=== PATIENT | male | born 2000 | race Two or more races ===

== ENCOUNTER 2022-12-07 17:13 | Emergency (ER) | payer OTHER, SELFPAY ==
[2022-12-07 17:18] VITALS: BP 139/83; PULSE 99; RESP 16; TEMP 36.4; O2SAT 98
[2022-12-07 17:39] LABS: Basophils Absolute Auto 0.02 K/uL (0.00-0.30); Basophils Percent Auto 0.2 % (0.0-3.0); Hematocrit 45.5 % (37.0-53.0); Hemoglobin* 15.7 gm/dL (13.5-17.5); Immature Granulocytes Abs Auto 0.09 K/uL (0.00-0.30); Immature Granulocytes Pct Auto 0.9 %; Lymphocytes Percent Auto 10.6 % (20-44); Mean Corpuscular HGB Conc 35 gm/dL (32-36); Mean Corpuscular Hemoglobin 29 pg (26-34); Mean Corpuscular Volume 84 fL (80-100); Monocytes Percent Auto 1.7 % (0.0-11.0); Neutrophils Percent Auto 85.6 % (42.0-72.0); Platelet Count* 158 K/uL (140-440); RDW Coefficient of Variation % 12.6 % (11.5-15.5); Red Blood Count 5.39 m/uL (4.30-5.90); White Blood Count* 9.69 K/uL (4.50-11.00)
[2022-12-07 17:40] LABS: Slide Review Reflex No
[2022-12-07] MEDS: 0.9 % SODIUM CHLORIDE 1000 ml 1,000 ML IV (17:40)
[2022-12-07] MEDS: ONDANSETRON 2 MG/ML inj 4 MG IVP (17:42)
[2022-12-07] MEDS: KETOROLAC 30 MG/ML inj IVP (17:44)
[2022-12-07 17:52] LABS: Albumin* 4.6 g/dL (3.3-5.0)
[2022-12-07 17:53] LABS: Chloride* 103 mmol/L (96-114); Potassium* 3.6 mmol/L (3.6-5.1); Sodium* 138 mmol/L (135-149)
[2022-12-07 17:55] LABS: Aspartate Amino Transferase* 33 U/L (12-35); Bilirubin Direct* 0.3 mg/dL (0.0-0.5); Bilirubin Total* 0.8 mg/dL (0.1-1.5); Blood Urea Nitrogen* 10 mg/dL (5-24); Carbon Dioxide* 24 mmol/L (20-32); Creatinine* 0.7 mg/dL (0.5-1.5); Estimated Glomerular Filt Rate 132 ml/min
[2022-12-07 17:56] LABS: Alanine Aminotransferase* 32 U/L (4-50); Alkaline Phosphatase* 106 U/L (40-150); Glucose* 118 mg/dL (60-115); Lipase* 53 U/L (23-300)
[2022-12-07 18:06] VITALS: BP 126/76; PULSE 92; O2SAT 99
--- NOTE | 2022-12-07 18:45 | ED.GENADULT ---
HPI - General Adult General Chief complaint: Abdominal Pain Stated complaint: abdominal pain, vomiting Time Seen by Provider: 12/07/22 17:15 History of Present Illness HPI narrative: This 22-year-old male comes in with nausea, vomiting, and abdominal pain that began today. He has not had any diarrhea and does not report any fevers. He states that the pain is diffuse in his abdomen and is rather constant. Related Data Home Medications Medication Instructions Recorded Confirmed No Known Home Medications 12/07/22 12/07/22 Allergies Allergy/AdvReac Type Severity Reaction Status Date / Time No Known Drug Allergies Allergy Verified 12/07/22 17:18 Review of Systems Status of ROS: Reports: 10 or more systems reviewed and unremarkable except as noted in History and below Narrative: Constitutional: No fevers, no weight gain or loss. Eyes: No discharge. No vision changes. HENT: No congestion, no sore throat, no ear pain. Cardiovascular: No chest pain, no palpitations. Respiratory: No shortness of breath, no wheezes, no cough. Gastrointestinal: Nausea, vomiting, and abdominal discomfort. No diarrhea. Genitourinary: No dysuria, no hematuria. Musculoskeletal: Normal range of motion. Skin: No rashes, no pruritis. Neurological: No dizziness, weakness, sensory change, speech change. Endo/Heme/Allergies: No bruising or bleeding. No polydipsia. Pysch: no suicidality, no anxiety, no insomnia. All other systems reviewed and are negative. [facility] Social History Smoking Status: Never smoker How often do you have a drink containing alcohol: 4 or more times a week How many standard drinks containing alcohol do you have on a typical day: 3 or 4 How often do you have six or more drinks on one occasion: Never AUDIT-C Alcohol total score: 5 Non-prescribed substance use: crack/cocaine Exam Narrative: Exam Narrative: Constitutional: Well-developed, well-nourished, no acute distress. HEENT: Normocephalic, atraumatic. Neck: Normal range of motion. Nontender. Supple. Heart: Regular. No murmurs. Normal rate. Intact distal pulses. Lungs: Clear to auscultation. No chest discomfort. No wheezes, rhonchi, or rales. Abdomen: Normal bowel sounds. Mild tenderness. No rebound tenderness. Genitalia: Deferred. Back: No midline tenderness. Normal range of motion. Extremities: Normal range of motion. No injury. Skin: Intact. No rash. Warm. No erythema or pallor. Neurologic: No altered sensation. No weakness. Alert and oriented. Psychiatric: No suicidality. No anxiety or depression. No insomnia. Nursing notes and vitals signs are reviewed. Const: Vital Signs, click to edit/add: Vital Signs - 24 hr 12/07/22 17:18 12/07/22 18:06 Temperature 97.5 F L Pulse Rate [Pulse Oximeter] 99 92 Respiratory Rate 16 Blood Pressure [[facility] Upper Arm] 139/83 126/76 Pulse Oximetry 98 99 Oxygen Delivery Me thod Room Air Room Air Course Vital Signs Vital signs: Initial Vital Signs Temperature 97.5 F L 12/07/22 17:18 Temperature Source Temporal Artery Scan 12/07/22 17:18 Pulse Rate 99 12/07/22 17:18 Respiratory Rate 16 12/07/22 17:18 Blood Pressure 139/83 12/07/22 17:18 Blood Pressure Mean 101 12/07/22 17:18 Blood Pressure Position Sitting 12/07/22 17:18 Pulse Oximetry 98 12/07/22 17:18 Oxygen Delivery Method Room Air 12/07/22 17:18 Vital Signs Temperature 97.5 F L 12/07/22 17:18 Pulse Rate 99 12/07/22 17:18 Respiratory Rate 16 12/07/22 17:18 Blood Pressure 139/83 12/07/22 17:18 Pulse Oximetry 98 12/07/22 17:18 Oxygen Delivery Method Room Air 12/07/22 17:18 Temperature 97.5 F L 12/07/22 17:18 Pulse Rate 92 12/07/22 18:06 Respiratory Rate 16 12/07/22 17:18 Blood Pressure 126/76 12/07/22 18:06 Pulse Oximetry 99 12/07/22 18:06 Oxygen Delivery Method Room Air 12/07/22 18:06 Medical Decision Making MDM Narrative Medical decision making narrative: This patient comes in above-stated symptoms. An IV was established where he received a L of normal saline, Toradol 30 mg, and Zofran 4 mg. This brought great relief to his symptoms. Lab results returned with reassuring findings. Most likely this is a viral gastroenteritis. At the time of discharge the patient appears safe for outpatient management. The treatment plan is reviewed along with written and verbal return precautions. Reasons to return and the importance of close followup were also reviewed. He received prescription for Zofran. Lab Data Labs: Lab Results 12/07/22 Range/Units 17:30 WBC 9.69 (4.50-11.00) K/uL RBC 5.39 (4.30-5.90) m/uL Hgb 15.7 (13.5-17.5) gm/dL Hct 45.5 (37.0-53.0) % MCV 84 (80-100) fL MCH 29 (26-34) pg MCHC 35 (32-36) gm/dL RDW Coeff of Garcia 12.6 (11.5-15.5) % Plt Count 158 (140-440) K/uL Neut % (Auto) 85.6 H (42.0-72.0) % Lymph % (Auto) 10.6 L (20-44) % [place] % (Auto) 1.7 (0.0-11.0) % Eos % (Auto) 1.0 (0.0-7.0) % Baso % (Auto) 0.2 (0.0-3.0) % Neut # (Auto) 8.30 H (1.7-7.0) K/uL Lymph # (Auto) 1.00 (0.90-2.90) K/uL [place] # (Auto) 0.20 (0.00-0.90) K/UL Eos # (Auto) 0.10 (0.00-0.50) K/uL Baso # (Auto) 0.02 (0.00-0.30) K/uL Sodium 138 (135-149) mmol/L Potassium 3.6 (3.6-5.1) mmol/L Chloride 103 (96-114) mmol/L Carbon Dioxide 24 (20-32) mmol/L BUN 10 (5-24) mg/dL Creatinine 0.7 (0.5-1.5) mg/dL Estimated GFR 132 ml/min Glucose 118 H (60-115) mg/dL Calcium 9.0 (8.4-10.6) mg/dL Total Bilirubin 0.8 (0.1-1.5) mg/dL Direct Bilirubin 0.3 (0.0-0.5) mg/dL AST 33 (12-35) U/L ALT 32 (4-50) U/L Alkaline Phosphatase 106 (40-150) U/L Total Protein 8.0 (6.0-8.3) g/dL Albumin 4.6 (3.3-5.0) g/dL Lipase 53 (23-300) U/L Discharge Plan Discharge Clinical Impression: Gastroenteritis Patient Disposition: Home, Self-Care Condition: Improved Additional Instructions: Take medication as needed and directed. Follow up with MD or return if worsening. Prescriptions: No Action No Known Home Medications Follow Up/Referrals: Provider,Not a Local [Primary Care Provider] - Stand Alone Forms: [employer] Info Instructions
== END 2022-12-07 19:07 | disposition home or self-care (01) ==
PROVIDERS: Emergency Provider Emergency Medicine Emergency Medical Services
DX: K52.9 Noninfective gastroenteritis and colitis, unspecified (principal)
CPT/HCPCS: 36415; 80048; 80076; 83690; 85025; 99283; 99284; J1885; J2405; J7030

== ENCOUNTER 2022-12-08 07:30 | Day surgery (SDC) | payer OTHER, SELFPAY ==
[2022-12-08] VITALS (28 sets, daily range): BP systolic 108–133; BP diastolic 67–84; PULSE 64–657; RESP 16–18; TEMP 36–37.4; O2SAT 92–98; BMI 26.2
--- NOTE | 2022-12-08 07:44 | CRLHL7_ITS ---
For Patients: As a result of the Century Cures Act, medical imaging exams and procedure reports are released immediately into your electronic medical record. You may view this report before your referring provider. If you have questions, please contact your health care provider. INDICATION: RLQ PAIN TECHNIQUE: CT abdomen and pelvis with ISOVUE 370 82CC IV contrast. COMPARISON: None. FINDINGS: The liver is normal in size, shape and attenuation. Gallbladder and biliary tree are normal. The spleen, adrenal glands and pancreas are within normal limits. The kidneys are unremarkable. No hydronephrosis. Decompressed bladder. Dilated fluid-filled appendix with wall thickening and inflammation. Findings compatible with acute appendicitis. Tiny foci of air near the appendix tip on series 2, image 122 which appears to be extraluminal concerning for localized/contained perforation. No evidence of fluid collection. Mildly prominent right lower quadrant lymph nodes which are likely reactive. Mildly dilated fluid-filled loops of small bowel in the right lower quadrant which are likely reactive. No evidence of bowel obstruction. No significant free fluid. Pelvic organs are unremarkable. The lower chest is unremarkable. IMPRESSION: Findings compatible with acute appendicitis. Tiny foci of air near the appendix tip which appears to be extraluminal concerning for localized/contained appendix perforation. No evidence of fluid collection to suggest abscess. Please note that all CT scans at this facility use dose modulation, iterative reconstruction, and/or weight-based dosing when appropriate to reduce radiation dose to as low as reasonably achievable. Dictated by Karl Coyle MD @ 12/08/2022 9:07:25 AM (Electronically Signed)
--- NOTE | 2022-12-08 07:45 | ED_ITS ---
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 Was thought to have gastroenteritis given some Zofran with good relief and sent home. He continues to have vomiting and today increasing right lower quadrant pain. No pain in his testicle area no trauma no injury. No marked fevers or chills, he walks in slightly flexed position by report and he also had significant tenderness when he hit bumps in the car on the way here in his right lower quadrant. Pain does not really radiate stays localized right lower quadrant. He has not eaten since yesterday. No recent illness, no cough colds no chronic health problems, no home medications. Related Data Previous Rx's Medication Instructions Recorded hydrocodone 5 mg-acetaminophen 325 1 tab PO Q6H PRN pain #20 tabs 12/08/22 mg tablet polyethylene glycol 3350 17 gram 17 g PO DAILY #10 ea 12/08/22 oral powder packet (Miralax) Allergies Allergy/AdvReac Type Severity Reaction Status Date / Time No Known Drug Allergies Allergy Verified 12/07/22 17:18 Review of Systems Status of ROS: Reports: 6 or more systems reviewed and unremarkable except as noted in History and below PFSH PFSH Social History Smoking Status: Never smoker How often do you have a drink containing alcohol: 4 or more times a week How many standard drinks containing alcohol do you have on a typical day: 3 or 4 How often do you have six or more drinks on one occasion: Never AUDIT-C Alcohol total score: 5 Non-prescribed substance use: crack/cocaine Exam Narrative: Exam Narrative: Objective: Patient's vital signs unremarkable and slightly elevated temperature In general he is in mild distress and discomfort he is alert orient x3 HEENT is unremarkable no facial asymmetry no scleral icterus neck is supple chest is clear heart rhythm regular heart murmur Abdomen benign except for his right lower quadrant he has got marked guarding and rebound no palpable mass negative CVA tenderness extremities are no edema neurologic nonfocal Periphery skin warm and dry Const: Vital Signs, click to edit/add: Vital Signs - 24 hr 12/08/22 07:35 12/08/22 08:44 12/08/22 08:45 Temperature 99.4 F Pulse Rate 95 94 Pulse Rate [Right Pulse Oximeter] 107 H Respiratory Rate 18 Blood Pressure 118/69 Blood Pressure [Ri ght Arm] Blood Pressure [Ri ght Upper Arm] 112/73 Pulse Oximetry 98 97 97 Oxygen Delivery Me thod Room Air 12/08/22 08:46 12/08/22 09:00 12/08/22 09:01 Temperature Pulse Rate 92 96 98 Pulse Rate [Right Pulse Oximeter] Respiratory Rate Blood Pressure 123/78 Blood Pressure [Ri ght Arm] Blood Pressure [Ri ght Upper Arm] Pulse Oximetry 97 98 98 Oxygen Delivery Me thod 12/08/22 09:30 12/08/22 09:31 12/08/22 10:00 Temperature Pulse Rate 92 94 81 Pulse Rate [Right Pulse Oximeter] Respiratory Rate Blood Pressure 133/76 Blood Pressure [Ri ght Arm] Blood Pressure [Ri ght Upper Arm] Pulse Oximetry 97 97 97 Oxygen Delivery Me thod 12/08/22 10:01 12/08/22 10:30 12/08/22 10:31 Temperature Pulse Rate 92 81 85 Pulse Rate [Right Pulse Oximeter] Respiratory Rate Blood Pressure 116/78 112/72 Blood Pressure [Ri ght Arm] Blood Pressure [Ri ght Upper Arm] Pulse Oximetry 97 96 97 Oxygen Delivery Me thod 12/08/22 12:10 12/08/22 12:15 12/08/22 12:20 Temperature 97.9 F Pulse Rate 89 98 92 Pulse Rate [Right Pulse Oximeter] Respiratory Rate 18 18 18 Blood Pressure 118/84 111/75 111/69 Blood Pressure [Ri ght Arm] Blood Pressure [Ri ght Upper Arm] Pulse Oximetry 94 92 92 Oxygen Delivery Me thod Room Air Room Air Room Air 12/08/22 12:25 12/08/22 12:30 12/08/22 12:50 Temperature 98.5 F 98.4 F Pulse Rate 79 78 75 Pulse Rate [Right Pulse Oximeter] Respiratory Rate 16 16 16 Blood Pressure 113/73 116/74 Blood Pressure [Ri ght Arm] 113/72 Blood Pressure [Ri ght Upper Arm] Pulse Oximetry 96 98 Oxygen Delivery Me thod Room Air Room Air Room Air 12/08/22 13:00 12/08/22 13:15 12/08/22 13:30 Temperature 97.4 F L 97.5 F L Pulse Rate Pulse Rate [Right Pulse Oximeter] 85 65 68 Respiratory Rate 16 16 16 Blood Pressure Blood Pressure [Ri ght Arm] 113/76 110/71 115/82 Blood Pressure [Ri ght Upper Arm] Pulse Oximetry 98 96 96 Oxygen Delivery Me thod Room Air Room Air Room Air 12/08/22 13:45 12/08/22 14:00 12/08/22 14:30 Temperature 97 F L 97.1 F L Pulse Rate Pulse Rate [Right Pulse Oximeter] 65 657 H 70 Respiratory Rate 16 16 16 Blood Pressure Blood Pressure [Ri ght Arm] 108/76 120/75 121/79 Blood Pressure [Ri ght Upper Arm] Pulse Oximetry 97 96 97 Oxygen Delivery Me thod Room Air Room Air Room Air 12/08/22 15:00 12/08/22 15:54 12/08/22 16:00 Temperature 96.8 F L 96.8 F L 97 F L Pulse Rate 75 Pulse Rate [Right Pulse Oximeter] 65 64 Respiratory Rate 16 16 18 Blood Pressure 116/74 Blood Pressure [Ri ght Arm] 110/67 110/68 Blood Pressure [Ri ght Upper Arm] Pulse Oximetry 97 97 Oxygen Delivery Me thod Room Air Room Air 12/08/22 17:00 Temperature 97 F L Pulse Rate Pulse Rate [Right Pulse Oximeter] 64 Respiratory Rate 16 Blood Pressure Blood Pressure [Ri ght Arm] 112/69 Blood Pressure [Ri ght Upper Arm] Pulse Oximetry 97 Oxygen Delivery Me thod Room Air Course Vital Signs Vital signs: Initial Vital Signs Temperature 99.4 F 12/08/22 07:35 Temperature Source Temporal Artery Scan 12/08/22 07:35 Pulse Rate 107 H 12/08/22 07:35 Respiratory Rate 18 12/08/22 07:35 Blood Pressure 112/73 12/08/22 07:35 Blood Pressure Mean 86 12/08/22 07:35 Blood Pressure Position Sitting 12/08/22 07:35 Pulse Oximetry 98 12/08/22 07:35 Oxygen Delivery Method Room Air 12/08/22 07:35 Vital Signs Temperature 99.4 F 12/08/22 07:35 Pulse Rate 107 H 12/08/22 07:35 Respiratory Rate 18 12/08/22 07:35 Blood Pressure 112/73 12/08/22 07:35 Pulse Oximetry 98 12/08/22 07:35 Oxygen Delivery Method Room Air 12/08/22 07:35 Temperature 97 F L 12/08/22 17:00 Pulse Rate 64 12/08/22 17:00 Respiratory Rate 16 12/08/22 17:00 Blood Pressure 112/69 12/08/22 17:00 Pulse Oximetry 97 12/08/22 17:00 Oxygen Delivery Method Room Air 12/08/22 17:00 Medical Decision Making MDM Narrative Medical decision making narrative: 22-year-old male with right lower quadrant pain for 24 hour plus duration, with peritonitis, symptoms consistent with appendicitis. Patient will get a CT scan with IV contrast, IV fluid, laboratory studies. Surgical consult is needed, IV pain medication and IV fluid. Antiemetic. NPO. Addendum: Patient has CT confirmation of acute appendicitis. Dr. Church contacted and will call the OR crew for disposition. Lab Data Labs: Lab Results 12/08/22 Range/Units 07:50 WBC 14.06 H (4.50-11.00) K/uL RBC 5.22 (4.30-5.90) m/uL Hgb 15.3 (13.5-17.5) gm/dL Hct 44.5 (37.0-53.0) % MCV 85 (80-100) fL MCH 29 (26-34) pg MCHC 34 (32-36) gm/dL RDW Coeff of Garcia 13.0 (11.5-15.5) % Plt Count 130 L (140-440) K/uL Neut % (Auto) 94.0 H (42.0-72.0) % Lymph % (Auto) 2.6 L (20-44) % [place] % (Auto) 2.8 (0.0-11.0) % Eos % (Auto) 0.0 (0.0-7.0) % Baso % (Auto) 0.2 (0.0-3.0) % Neut # (Auto) 13.20 H (1.7-7.0) K/uL Lymph # (Auto) 0.40 L (0.90-2.90) K/uL [place] # (Auto) 0.40 (0.00-0.90) K/UL Eos # (Auto) 0.00 (0.00-0.50) K/uL Baso # (Auto) 0.00 (0.00-0.30) K/uL Sodium 136 (135-149) mmol/L Potassium 3.8 (3.6-5.1) mmol/L Chloride 102 (96-114) mmol/L Carbon Dioxide 25 (20-32) mmol/L BUN 12 (5-24) mg/dL Creatinine 0.9 (0.5-1.5) mg/dL Estimated Creat Clear 118.33 Estimated GFR 122 ml/min Glucose 139 H (60-115) mg/dL Calcium 8.5 (8.4-10.6) mg/dL Total Bilirubin 1.9 H (0.1-1.5) mg/dL Direct Bilirubin 0.8 H (0.0-0.5) mg/dL AST 67 H (12-35) U/L ALT 46 (4-50) U/L Alkaline Phosphatase 82 (40-150) U/L C-Reactive Protein 8.7 H (0.5-1.0) mg/dL Total Protein 7.7 (6.0-8.3) g/dL Albumin 4.3 (3.3-5.0) g/dL Amylase 56 (18-89) U/L Discharge Plan Discharge Clinical Impression: Abdominal pain, acute, right lower quadrant, Acute appendicitis Patient Disposition: Admitted As Inpatient Activity Level: No strenuous activity Activity Detail: No strenuous activity or lifting more than 15-20 lbs for 4-6 weeks. Discharge Diet: Regular
[2022-12-08 07:59] LABS: Basophils Percent Auto 0.2 % (0.0-3.0); Hematocrit 44.5 % (37.0-53.0); Hemoglobin* 15.3 gm/dL (13.5-17.5); Immature Granulocytes Pct Auto 0.4 %; Lymphocytes Percent Auto 2.6 % (20-44); Mean Corpuscular HGB Conc 34 gm/dL (32-36); Mean Corpuscular Hemoglobin 29 pg (26-34); Mean Corpuscular Volume 85 fL (80-100); Monocytes Percent Auto 2.8 % (0.0-11.0); Platelet Count* 130 K/uL (140-440); Red Blood Count 5.22 m/uL (4.30-5.90); White Blood Count* 14.06 K/uL (4.50-11.00)
[2022-12-08 08:08] LABS: Slide Review Reflex No
[2022-12-08 08:12] LABS: Albumin* 4.3 g/dL (3.3-5.0); Chloride* 102 mmol/L (96-114)
[2022-12-08 08:13] LABS: Potassium* 3.8 mmol/L (3.6-5.1); Sodium* 136 mmol/L (135-149)
[2022-12-08 08:15] LABS: Amylase* 56 U/L (18-89); Creatinine* 0.9 mg/dL (0.5-1.5); Est. Creatinine Clearance* 118.33; Estimated Glomerular Filt Rate 122 ml/min
[2022-12-08 08:16] LABS: Alanine Aminotransferase* 46 U/L (4-50); Alkaline Phosphatase* 82 U/L (40-150); Aspartate Amino Transferase* 67 U/L (12-35); Bilirubin Direct* 0.8 mg/dL (0.0-0.5); Bilirubin Total* 1.9 mg/dL (0.1-1.5); Blood Urea Nitrogen* 12 mg/dL (5-24); Calcium* 8.5 mg/dL (8.4-10.6); Carbon Dioxide* 25 mmol/L (20-32); Glucose* 139 mg/dL (60-115); Total Protein* 7.7 g/dL (6.0-8.3)
[2022-12-08 08:19] LABS: C Reactive Protein* 8.7 mg/dL (0.5-1.0)
[2022-12-08] MEDS: 0.9 % SODIUM CHLORIDE 500 ML 500 ML IV (08:21)
[2022-12-08] MEDS: ONDANSETRON 2 MG/ML inj 4 MG IVP (08:21)
[2022-12-08] MEDS: HYDROmorphone 0.5 mg/0.5 ml inj IVP (08:21)
--- NOTE | 2022-12-08 10:15 | ED.NURSE ---
no change in condition. waiting for surgery
--- NOTE | 2022-12-08 10:33 | ED.NURSE ---
antibiotics held per surgery request. per [facility], they will address antibiotics in the OR
[2022-12-08] MEDS: LACTATED RINGERS 1000 ML 1,000 ML 100 ML IV (11:17)
[2022-12-08] MEDS: PIPERACILLIN/TAZOBACTAM 3.375 GM INJ IVPB (11:20)
--- NOTE | 2022-12-08 11:21 | P.GSHP_ITS ---
History of Present Illness History of Present Illness Date Seen: 12/08/22 Chief complaint: Right Side Abdominal Pain Narrative: Sergio Heredia is a 22 year old male presented to emergency room with right lower quadrant abdominal pain. Patient was initially seen yesterday with right lower quadrant abdominal pain. After pain medication and anti nausea medication, his pain improved and he was discharged home. His pain then returned and patient presented to the emergency room. Patient denies any nausea or vomiting. He did not have any similar episodes in the past. Upon his workup in the emergency room he was found to have an elevated WBC of 14. An abdominal CT was obtained that showed a dilated appendix with periappendiceal inflammation. There was a tiny air bubble near the appendix indicating possible perforation. There was no evidence of periappendiceal abscess. In addition, patient was found to have elevated liver function tests with total bilirubin of 1.9 and direct bilirubin of 0.8. Patient denies drinking alcohol yesterday. Review of Systems Narrative: General: no fevers HENT: no problems swallowing CV: no shortness of breath Resp: no cough GI: See above Skin: no new rashes Musculoskeletal: no back pain Neuro: no muscle weakness PFSH PFS Social History Smoking Status: Never smoker How often do you have a drink containing alcohol: 4 or more times a week How many standard drinks containing alcohol do you have on a typical day: 3 or 4 How often do you have six or more drinks on one occasion: Never AUDIT-C Alcohol total score: 5 Non-prescribed substance use: crack/cocaine Meds Home Medications and Allergies Home Medications Medication Instructions Recorded Confirmed Type No Known Home Medications 12/07/22 12/07/22 History Allergies Allergy/AdvReac Type Severity Reaction Status Date / Time No Known Drug Allergies Allergy Verified 12/07/22 17:18 Exam Narrative: Exam Narrative: General appearance: Alert, cooperative, and in no distress Pulmonary: Chest symmetric, lungs clear bilaterally Cardiovascular Heart: Regular rate and rhythm, S1, S2, no murmurs/rubs/gallops Gastrointestinal Abdominal: soft, not distended, tender to palpation in the right lower quadrant. Skin: Normal skin color, texture, and turgor. No rashes or lesions. Psychiatric: Alert, cooperative, normal affect. Const: Vital Signs, click to edit/add: Vital Signs - 24 hr 12/08/22 07:35 12/08/22 08:44 12/08/22 08:45 Temperature 99.4 F Pulse Rate 95 94 Pulse Rate [Right Pulse Oximeter] 107 H Respiratory Rate 18 Blood Pressure 118/69 Blood Pressure [Ri ght Upper Arm] 112/73 Pulse Oximetry 98 97 97 Oxygen Delivery Me thod Room Air 12/08/22 08:46 12/08/22 09:00 12/08/22 09:01 Temperature Pulse Rate 92 96 98 Pulse Rate [Right Pulse Oximeter] Respiratory Rate Blood Pressure 123/78 Blood Pressure [Ri ght Upper Arm] Pulse Oximetry 97 98 98 Oxygen Delivery Me thod 12/08/22 09:30 12/08/22 09:31 12/08/22 10:00 Temperature Pulse Rate 92 94 81 Pulse Rate [Right Pulse Oximeter] Respiratory Rate Blood Pressure 133/76 Blood Pressure [Ri ght Upper Arm] Pulse Oximetry 97 97 97 Oxygen Delivery Me thod 12/08/22 10:01 12/08/22 10:30 12/08/22 10:31 Temperature Pulse Rate 92 81 85 Pulse Rate [Right Pulse Oximeter] Respiratory Rate Blood Pressure 116/78 112/72 Blood Pressure [Ri ght Upper Arm] Pulse Oximetry 97 96 97 Oxygen Delivery Me thod Assessment and Plan Assessment and plan (1) Acute appendicitis: Status: Acute Plan 22-year-old male presents with acute appendicitis. I discussed with the patient through bilingual interpreter his laboratory and imaging findings. Patient does have evidence of acute appendicitis with possible perforation that is contained. I recommended to proceed with laparoscopic appendectomy. The procedure was discussed in detail. The risks associated procedure including infection, bleeding, injury to intra-abdominal organs, and intra-abdominal abscess were all discussed with the patient, and he agreed to proceed. I also discussed that patient had elevated liver function tests. The etiology of this is unclear. This could be stress related. I think at this time we will repeat his liver function tests postoperatively to see if they are improving. All questions were answered.
[2022-12-08] MEDS: BUPIVACAINE 0.25% 30 ML INJECTION (11:45)
--- NOTE | 2022-12-08 12:10 | PM.GSPRC ---
Operative Note Date of procedure: 12/08/22 Pre-op diagnosis: 1. Acute appendicitis. Post-op diagnosis: Same Type of Procedure: 1. Laparoscopic appendectomy. Indications: 22-year-old male was seen in the emergency room with right lower quadrant abdominal pain that started yesterday. Patient was initially seen in the emergency room yesterday and was thought to have gastroenteritis. Patient was discharged home but continued to have symptoms and re-presented to the emergency room today. Upon his workup he was found to have an elevated WBC of 14. An abdominal CT was obtained that showed a dilated wall enhancing appendix with periappendiceal inflammation. On clinical exam patient had tenderness to palpation in the right lower quadrant but no where else. Given patient's clinical history and his physical exam, acute appendicitis was suspected, and laparoscopic appendectomy was recommended. The procedure was discussed in detail. The risks associated procedure including infection, bleeding, and injury to intra-abdominal organs were all discussed with the patient, and he agreed to proceed. Procedure Description: After discussing the risks and benefits of the procedure, the patient signed informed consent.? The operative site was marked and the patient was brought to the operating room and placed on the operating table in supine position.? Care was taken to pad the patient's pressure points.?? The patient was then intubated by anesthesia.?? The operative site was then prepped and draped in the usual sterile fashion.? A time-out was then performed. A 5-mm laparoscopy port was placed in the left upper quadrant guided by a 5-mm laparoscope placed into a translucent trochar. Passage through the layers of the abdominal wall was visualized with the laparoscope. A pneumoperitoneum was established. A 30-degree 5-mm laparoscope was advanced into the abdomen. The abdomen was briefly surveyed, and there was no evidence of diffuse peritonitis. A 12-mm port and a 5-mm port were placed in the left low quadrant and suprapubically, respectively, under direct visualization by laparoscope. Left upper quadrant entrance port was then examined intraabdominally by placing the camera through the left lower quadrant port and no intraabdominal injury was seen. The patient was placed in Trendelenburg position, allowing the abdominal contents to shift cephalad. The small bowel was moved toward the midline in the abdomen and this allowed for identification of the appendix. It appeared to be inflamed but there was no evidence of perforation. The appendix was grasped and dissected from the peritoneum using Harmonic scalpel. A [place] clamp was passed between the appendiceal mesentery and the base of the appendix, creating a window. A 60 mm vascular load Endo-ELOINA stapler was advanced through the 12-mm port into the abdomen and appendix was stapled off at its base. The appendiceal mesentery was skelefohized with a Harmonic scalpel. When the appendix was free, it was then placed in an endoscopic retrieval bag and extracted from the abdomen through the 12-mm port. The abdomen was surveyed for hemostasis. Pulsating appendiceal mesentery was examined and 2 5 mm clips were placed in the mesentery that was thought to be appendiceal artery. No bleeding was seen. The 12-mm port was withdrawn and the fascial defect was closed with 0-0 Vicryl stitch using Lukas Savanna needle under direct visualization. The 5-mm port was removed under direct visualization. The left upper quadrant port was used to evacuate the pneumoperitoneum and then withdrawn. The skin incisions were closed with 4-0 monocryl. Steri-Strips were applied over the incisions. All counts were correct at the end of the case. The patient tolerated this procedure well and was transferred to PACU in stable condition. Findings: Acute appendicitis. There was no evidence of perforation. Anesthesia: GETA Surgeon: Michelle Barnard MD Estimated blood loss (mL): 5 Specimen: Appendix Condition: stable Disposition: PACU
--- NOTE | 2022-12-08 12:16 | P.ANES_ITS ---
Anesthesia Charges Start Date/Time Anesthesia Start Date: 12/08/22 Anesthesia Start Time: 11:17 Stop Date/Time Anesthesia Stop Date: 12/08/22 Anesthesia Stop Time: 12:13 Summary Emergency: [facility]
--- NOTE | 2022-12-08 18:22 | PC.NURSE ---
DISCHARGE NOTE: Pt pleasant and cooperative, competency evaluated nurse aide used, A&O. Pt given written and verbal d/c instructions along with a note for return back to work and follow up appointment time, pt acknowledged understanding. Pt's family member picked up pt's prescriptions. Pt up independent and tolerating well. Denied pain, nausea, and CP/SOB. VS at d/c 111/70, 98% on RA, temp 97.1, HR 58. Pt urinated before d/c. Lap sites intact with no drainage noted. IV d/c with tip intact. Tolerated regular diet. Pt ambulated independently to family member's car, all pt's belongings and d/c instructions sent with pt.
== END 2022-12-08 17:41 | disposition home or self-care (01) ==
LOC: ED 10:14 → SS 11:19 → MEDSURG 12:57
PROVIDERS: Emergency Provider Family Medicine; Visit Provider Surgery
PROC: 0DTJ4ZZ Resection of Appendix, Percutaneous Endoscopic Approach (ICD-10-PCS; CPT 44970; principal; 2022-12-08 10:30)
DX: K35.80 Unspecified acute appendicitis (principal)
CPT/HCPCS: 44970; 00840; 36415; 74177; 80048; 80076; 82150; 85025; 86140; 88304; 99140; 99284; J0330; J1100; J1170; J1200; J1885; J2405; J2543; J2704; J3010; J3490; J7120; Q9967